=== PATIENT | female | born 1940 | race Caucasian/White ===

== ENCOUNTER 2016-11-24 09:46 | Emergency (ER) | payer OTHER ==
[2016-11-24 09:53] VITALS: BP 170/78; PULSE 78; TEMP 97; BMI 27.5
[2016-11-24] MEDS ORDERED: OXYCODONE HCL 5 MG TABLET PO ONE (10:02)
--- NOTE | 2016-11-24 10:24 | EDPRACDOC ---
- General Information Chief Complaint: Wrist Pain Stated Complaint: LEFT WRIST PAIN Time Seen by Provider: 11/24/16 09:54 Information Source: Patient Home Medications: Home Medications Acyclovir 400 mg PO DAILY 08/27/16 Alendronate Sodium 70 mg PO Q7D 08/27/16 Alprazolam [Xanax] 0.5 mg PO Q6H PRN 08/27/16 Amiodarone [Cordarone, Pacerone] 100 mg PO DAILY 08/27/16 Aspirin 325 mg PO DAILY 08/27/16 Budesonide [Pulmicort Flexhaler] 1 puff INH DAILY 08/27/16 Bupropion HCl [Wellbutrin] 150 mg PO DAILY 08/27/16 Cyclobenzaprine HCl [Flexeril] 10 mg PO TID PRN 08/27/16 Digoxin [Lanoxin, Digitek] 125 mcg PO DAILY 08/27/16 Diltiazem HCl [Diltiazem ER] 300 mg PO DAILY 08/27/16 Fluticasone Propionate [Flonase] 2 spray LARON DAILY 08/27/16 Paroxetine HCl [Paxil] 40 mg PO DAILY 08/27/16 Valsartan/Hydrochlorothiazide [Diovan Hct 320-12.5 mg Tab] 1 each PO DAILY 08/27 Acetaminophen [Arthritis Pain Relief] 650 mg PO BID 11/24/16 Albuterol Sulfate [Ventolin Hfa] 1 - 2 puff INH Q4H PRN 11/24/16 Oxycodone Immediate Release [Oxycodone Immediate Release (OxyIR)] 5 mg PO Q6H PRN #30 tab 11/24/16 Allergies/Adverse Reactions: Allergies Allergy/AdvReac Type Severity Reaction Status Date / Time NOVACAINE Allergy Severe Anaphylaxis Uncoded 11/24/16 09:53 * - History of Present Illness Onset: FRI HPI: PT PRESENTS TODAY WITH LEFT WRIST PAIN AFTER FOOSH 2 DAYS AGO. NO OTHER INJURY REPORTED. Location: Reports: Dorsal Dominant Side: Reports: Right Mechanism: Reports: FOOSH Circumstances: Reports: Fall Pain Severity: Reports: Moderate Associated Signs and Symptoms: Reports: None ED Past Medical History - History Reviewed Yes Nurses notes reviewed and agree except as marked - Patient Medical History Cardiac History: Reports: Atrial Fibrillation, Hypertension Respiratory History: Reports: Asthma, COPD, Emphysema Psychological History: Reports: Depression Surgical History: Reports: Tonsillectomy/Adnoidectomy - Social Medical History Smoking Status: Never smoker EDM Review of Systems - Review of Systems ROS Negative Except as Marked: Yes All systems reviewed and were negative except as marked Constitutional: No Symptoms Reported Respiratory: No Symptoms Reported Cardiovascular: No Symptoms Reported Gastrointestinal: No Symptoms Reported Neurological: No Symptoms Reported Musculoskeletal: Wrist Integumentary: No Symptoms Reported - Physical Exam Constitutional: Alert (Awake), No apparent distress Oriented to: Time, Person, Place Last recorded Vital Signs: Last Vital Signs Temp 97.0 F L 11/24/16 09:47 Pulse 78 11/24/16 09:47 Resp 20 11/24/16 09:47 BP 170/78 11/24/16 09:47 Pulse Ox 95 11/24/16 09:47 Oxygen Pulse Oxygen Saturation 95 O2 Device Oxygen Flow Rate Fraction of Inspired Oxygen ( FIO2) - HEENT Head: Normal Eye Exam: Normal Neck: Normal, Denies Pain, Midline - Respiratory/Cardiovascular Respiratory: Normal - CTA Cardiovascular: Normal - GI Palpation: Normal Tenderness: Non tender - Musculoskeletal Back: Normal Extremities: Other (RADIAL PULSES PRESENT; CAP REFILL < 1; PT STATES PAIN WITH FLEXION/EXTENSION AND TTP TO LEFT MEDIAL WRIST) - Integumentary Skin: Normal Lymphatics: Normal - Neurologic Cerebellar: Normal Mood Description: Normal Thought: Coherent ED Wrist Problem Exam Wrist Symptoms: Deformity (POSSIBLE? PT STATES THIS IS CHRONIC ARTHRITIS), Limited ROM, Moderate Tenderness Hand Symptoms: Normal Forearm Symptoms: Normal Distal Function/Circulation: Normal - Integumentary Skin: Normal Lymphatics: Normal ED Procedures - Splinting 1st splint Location: LEFT WRIST Hand-Made Type: orthoglass Splint: sugar-tong Pre-Proc Neuro Vasc Exam: normal Post-Proc Neuro Vasc Exam: normal Other Devices: Sling Decision Time to Discharge: 11:28 - Departure Disposition: Home Condition: Good Final Diagnosis: Wrist fracture Qualifiers: Encounter type: initial encounter Fracture type: closed Laterality: left Qualified Code(s): S62.102A - Fracture of unspecified carpal bone, left wrist, initial encounter for closed fracture Instructions: Wrist Fracture in Adults (ED) Education/Counseling Given To: Patient Education/Counseling Given Regarding: Diagnosis, Treatment, Follow Up Referrals: None,No Provider [Primary Care Provider] - One Week Keyshawn Monique DO [Staff Physician] - One Week Prescriptions: Oxycodone Immediate Release [Oxycodone Immediate Release (OxyIR)] 5 mg PO Q6H PRN #30 tab PRN Reason: Pain Additional Instructions: FOLLOW UP WITH ORTHO.
--- NOTE | 2016-11-24 10:56 | DIRPT ---
CLINICAL DATA: 76-year-old female who fell walking up steps carrying a basket. Left wrist pain. Initial encounter. EXAM: LEFT WRIST - COMPLETE 3+ VIEW COMPARISON: None. FINDINGS: Suspicion of nondisplaced ulnar styloid fracture (arrow). Otherwise the distal left radius and ulna appear intact. Proximal row carpal bone alignment is within normal limits. Distal row carpal bones remarkable for severe chronic degenerative changes at the first CMC joint. Bulky osteophytosis and subchondral sclerosis. No acute carpal bone fracture identified. Motion artifact on the lateral view. Metacarpals appear intact. IMPRESSION: 1. Suspected nondisplaced left ulnar styloid fracture. 2. No other acute fracture or dislocation identified about the left wrist. 3. Severe chronic first CMC joint degeneration. Electronically Signed By: Zach Yee M.D. On: 11/24/2016 10:53
== END 2016-11-24 11:51 | disposition home or self-care (01) ==
LOC: ED 09:46
DX: S62.102A Fracture of unspecified carpal bone, left wrist, initial encounter for closed fracture (principal); W18.30XA Fall on same level, unspecified, initial encounter; Y93.9 Activity, unspecified
CPT/HCPCS: 29125; 73110; 99283; A9270; J3490